=== PATIENT | female | born 1985 | race African-American/Black ===

== ENCOUNTER 2017-05-08 13:03 | Inpatient (IN) | payer BC ==
--- NOTE | ~2017-05-08 | HP ---
History And Physical [facility] [address] [place]. [address] NAME: BILLY WARNER : 87 STATUS : ADM Ellie PAT#: [id number] AGE: 31 ADM/REG DATE : 05/08/17 MR#: [id number] REPORT SERV DATE: 05/08/17 DICTATED BY: DARRICK TOLENTINO DATE: 05/08/17 REPORT STATUS : Draft TRANSCRIBED BY: CARLYLE DATE: 05/08/17 DATE OF ADMISSION: 05/08/2017 CHIEF COMPLAINT: Nausea and vomiting. HISTORY OF PRESENT ILLNESS: The patient is a very pleasant 31-year-old -N[place]ian female. She states on she presented to an Urgent Care of having suprapubic pressure and of the feeling that she may have a urinary tract infection. She was prescribed Cipro for 7 days. I did call the Urgent Care. There is no culture data back yet. She had some 500+ white cells or so according to them, this was however present on a dipstick. She did not have any fever documented. She states she took the Cipro, then on Monday evening, she had a couple of cocktails, woke up Monday, had nausea and vomiting, vomited all day Monday and Monday and then again this morning, she states she could keep nothing down and finally presented to [facility]. She again did not document her any fever. She did not have a new cough. She states the suprapubic pressure actually resolved after being on the Cipro for a couple of days. She has no real other past medical history. She has not seen a doctor in over 9 years, thus she does not know what her baseline kidney function is. PAST MEDICAL HISTORY: Positive for obesity. SOCIAL HISTORY: She does not smoke. She drinks socially. She has a son who is 9. She works as an HR. FAMILY HISTORY: There is no history of kidney disease. There is a history of hypertension in multiple family members. PAST SURGICAL HISTORY: She has had umbilical hernia repair. ALLERGIES: NO KNOWN DRUG ALLERGIES. HOME MEDICATIONS: Reviewed and includes Cipro 500 b.i.d.; ibuprofen [id number]; and p.r.n. Tylenol. REVIEW OF SYSTEMS: Full 10-point review of systems obtained. Pertinent positives are mentioned in the HPI. PHYSICAL EXAMINATION: VITAL SIGNS: Blood pressure 142/85, sats are 98%, temperature 98.2, pulse 65, and respiratory rate 18. GENERAL: A well-developed -[place]ian female, in no apparent distress. HEENT: Normocephalic, atraumatic. Throat is clear. NECK: Supple. Pupils are equal, round, and reactive to light and accommodation. HEART: Regular rate and rhythm without murmurs, rubs, or gallops. LUNGS: Grossly clear. Good symmetric air entry. ABDOMEN: Soft and nondistended. She has some mild epigastric tenderness. EXTREMITIES: Warm and dry. She has 2+ pulses at the feet. She has no significant History And Physical [address] [address] NAME: BILLY WARNER : 87 STATUS : ADM Ellie PAT#: [id number] AGE: 31 ADM/REG DATE : 05/08/17 MR#: [id number] REPORT SERV DATE: 05/08/17 DICTATED BY: DARRICK TOLENTINO DATE: 05/08/17 REPORT STATUS : Draft TRANSCRIBED BY: CARLYLE DATE: 05/08/17 peripheral edema. NEUROLOGIC: She is alert. She is oriented to person, place, and time. MUSCULOSKELETAL: Strength and tone are symmetrical in all four extremities. PSYCHIATRIC: Mood and affect are appropriate. LAB AND X-RAY: Urinalysis shows no significant reds or whites, 100+ protein, negative ketones, negative leukocyte esterase, and nitrites. CBC is essentially normal. CMP shows normal LFTs. Sodium 139, potassium 3.6, chloride 105, CO2 of 29, BUN and creatinine 19 and 3.12. Glucose is 99. Calcium is 8.7. Amylase and lipase are normal. CPK, TSH are pending. HCG is negative. ASSESSMENT/PLAN: 1. Acute kidney injury presumed, do not have any baseline labs to compare; however, my hope is that this is all volume related, related to her nausea, vomiting, and dehydration, however, would expect her BUN to be a bit higher in this case. I am going to place a Fischer and hydrate her aggressively. I am also going to perform a CT of the abdomen and pelvis to look for intrinsic renal disease as well as obstruction. We will obtain her culture results when they are available. I have left a phone number to Urgent Care Center on my progress notes so that the team can call tomorrow. I did try to get the results today and they were not available. We would hold any nephrotoxic agents. We will add some urine electrolytes and urine eosinophils, CPK, and TSH to her workup and go from there. 2. History of urinary tract infection. Her urine looks clean today. I am going to stop antibiotics. She has had over 3 days and if it was simple cystitis, this should be adequate. We will again need to be following up on her urine culture. 3. Lack of primary care. Need to refer to primary care at discharge. 4. Nausea, vomiting, normal amylase, lipase. Again we will follow up CT. We will hydrate aggressively and provide antiemetics and go from there. 5. Deep venous thrombosis prophylaxis with subcutaneous heparin. 6. Disposition pending above. 7. Probable undiagnosed hypertension. Again we will need to follow her blood pressure. She may need the antihypertensives prior to discharge. KIT/CARLYLE Darrick Tolentino M.D. / [id number] CC: Darrick Tolentino M.D.
--- NOTE | ~2017-05-08 | DS ---
Discharge Summary [facility] [address] [place]. [address] NAME: BILLY WARNER : 87 STATUS : DIS IN PAT#: [id number] AGE: 31 ADM/REG DATE : 05/08/17 MR#: [id number] REPORT SERV DATE: 05/12/17 DICTATED BY: DATE: REPORT STATUS : Draft TRANSCRIBED BY: MODL DATE: 05/11/17 ADMISSION DATE: 05/08/2017 DISCHARGE DATE: 05/11/2017 DISCHARGE DIAGNOSES: 1. Acute kidney injury secondary to volume depletion. 2. Hypertension. 3. Nausea and vomiting. 4. Migraines. 5. History of urinary tract infection with use of antibiotics. CONSULTATIONS: Nephrology, Dr. Cross and Beatris Alba, nurse practitioner. PROCEDURES AND IMAGIN. 05/08/2017, CT of the abdomen and pelvis without contrast showed no acute GI or obstruction. 2. 05/09/2017, renal ultrasound showed negative ultrasound, exam of the kidneys. HOSPITAL COURSE: Please refer to history and physical dated 05/08/[address] Carola Tolentino, for complete details regarding the patient's admission. In brief, the patient was admitted by Dr. Tolentino for initial workup of severe nausea and vomiting. The patient has a history of taking Cipro for urinary tract infection x3 days which was then followed by nausea and vomiting for several days. Upon discussion, the patient did say that her urine output was greatly decreased prior to presenting to the emergency room. The patient's nausea and vomiting has subsided. Upon admission, the patient's creatinine was elevated up to 3.97. This has resolved down to a creatinine of 1.54. The patient did show 100+ protein on her urinalysis. Initial BUN was 24 and this has resolved to 11 with fluids. Extensive testing has been done per Nephrology as well as Hospitalist Service. The patient's renal ultrasound was negative, urine eosinophils were negative. EVELYN was negative, ESR was negative. SPEP was negative. The patient will be following up with Nephrology in the next two to three weeks. During the patient's stay, it was discovered that the patient has episodic periods of hypertension. The patient has been instructed to keep a blood pressure log twice daily and take it to her appointment with Nephrology. The patient also has a history of migraines which have been stable at this time. The patient's urinalysis was clear for nitrites or esters or WBCs. PHYSICAL EXAMINATION: VITAL SIGNS: Blood pressure is 163/105, O2 saturation is 97% on room, temperature is 98.0, heart rate is 51, respirations are 18. HEENT: Head is atraumatic, normocephalic. Pupils are equal, round, reactive to light and accommodation. Sclerae are clear. Nonicteric. No xanthelasma. Good dentition. NECK: Neck is supple with no obvious thyromegaly or lymphadenopathy. Neck veins are flat and trachea is midline. CARDIAC: S1 and S2 with no obvious murmurs, rubs, or gallops. LUNGS: Lungs are clear to auscultation with normal respiratory effort. ABDOMEN: Abdomen is soft and nontender with obese pannus. Bowel sounds are active in all Discharge Summary [address] [place]. [address] NAME: BILLY WARNER : 87 STATUS : DIS IN PAT#: [id number] AGE: 31 ADM/REG DATE : 05/08/17 MR#: [id number] REPORT SERV DATE: 05/12/17 DICTATED BY: DATE: REPORT STATUS : Draft TRANSCRIBED BY: MODL DATE: 05/11/17 four quadrants. Normal bowel habitus. No palpable organomegaly. Obese abdomen. EXTREMITIES: No significant edema, clubbing, or cyanosis. Pulses are present and equal bilaterally. MUSCULOSKELETAL: Moves all extremities x4. She is ambulatory without assistance. No difficulties with balance. SKIN: Skin is warm and dry with normal color and turgor. NEUROPSYCH: The patient is alert and oriented x4, pleasant cooperative. Cranial nerves II through XII are grossly intact. DISCHARGE DIET: Renal diet. DISCHARGE MEDICATIONS: Multivitamins daily. ALLERGIES: THE PATIENT HAS NO KNOWN DRUG ALLERGIES. DISCHARGE INSTRUCTIONS: The patient is to follow up with Dr. Cross in two to three weeks. The patient also needs to find a primary care provider for regular visits. The patient will need to be taking her blood pressure twice daily and keeping a blood pressure log to take to Dr. Cross's office. Should the patient develop any more episodes of nausea, vomiting, or diarrhea, the patient is to observe her urine output and to push fluids. If the patient has decrease in urine output, she is to call her PCP or Dr. Cross's office or to present to the ER. Approximately 25 minutes was spent coordinating discharge care of this patient including [id number] encounter and summarization of the discharge. DICTATED BY: ARGELIA Pena/MODL Priyanka Kerns NP / [id number] CC: Luana Shepherd M.D.
--- NOTE | ~2017-05-08 | CN ---
Consultation Report [facility] [address] [place]. [address] NAME: BILLY WARNER : 87 STATUS : ADM Ellie PAT#: [id number] AGE: 31 ADM/REG DATE : 05/08/17 MR#: [id number] REPORT SERV DATE: 05/09/17 DICTATED BY: PATO BUSTAMANTE DATE: 05/09/17 REPORT STATUS : Draft TRANSCRIBED BY: CARLYLE DATE: 05/09/17 NEPHROLOGY CONSULTATION DATE OF CONSULTATION: INDICATION FOR CONSULTATION: Acute kidney injury. HISTORY OF PRESENT ILLNESS: Ms. Warner is a 31-year-old female, who is seen for acute kidney injury following admission for recent UTI, on treatment with ciprofloxacin. She presented to an outpatient facility with complaints of mild dysuria and suprapubic discomfort as well as frequency. Urinalysis was checked, and she was initiated on Cipro. She took only three days of treatment, , Monday, and a dose on Monday. She noted some nausea on Monday, but developed significant problems with nausea and vomiting Monday evening, which persisted through Monday and the time of her evaluation. She also noted some feverishness and chills. She denies any diarrhea, gross hematuria, or foamy urine. She has had no skin rash, epistaxis, or otic infection. She does note episodic bouts of strep throat with last being in December. She reports no arthralgias. Her serum creatinine was 3.12 on admission and has risen to 3.97. She has had no recent lab work since the of her child nine years ago. PAST MEDICAL HISTORY: Migraines, some childhood seasonal allergies. PAST SURGICAL HISTORY: Negative. MEDICATIONS: Ciprofloxacin, p.r.n. ibuprofen, p.r.n. Tylenol. ALLERGIES: NONE KNOWN. SOCIAL HISTORY: The patient works with human resources. Has some occasional social use of alcohol. No illicit drugs or tobacco products. She is single and has a 9-year-old child. She has college degree and a master's degree from [employer]. FAMILY HISTORY: Grandfather from colon cancer, had some kidney problems, but not on dialysis. Grandmother with heart problems. Multiple family members with hypertension and diabetes. No end-stage renal disease. REVIEW OF SYSTEMS: HEENT: No change in visual acuity. No epistaxis. No otic infection. No pharyngitis. Does have history of strep throat. PULMONARY: Denies cough, hemoptysis, or shortness of breath. CARDIAC: Denies chest pain, dizziness, palpitations, or lower extremity edema. GI: Recent nausea and vomiting. No diarrhea. No melena. : Recent suprapubic discomfort with dysuria. No gross hematuria. MUSCULOSKELETAL: No arthralgias. Consultation Report [facility] [id number] [place]. [address] NAME: BILLY WARNER : 87 STATUS : ADM Ellie PAT#: [id number] AGE: 31 ADM/REG DATE : 05/08/17 MR#: [id number] REPORT SERV DATE: 05/09/17 DICTATED BY: PATO BUSTAMANTE DATE: 05/09/17 REPORT STATUS : Draft TRANSCRIBED BY: CARLYLE DATE: 05/09/17 INTEGUMENT: No skin rash. No skin lesions. NEUROLOGIC: No lateralizing weakness or seizure disorder. Remainder of 12-point review of systems negative. PHYSICAL EXAMINATION: VITAL SIGNS: Blood pressure 142/80, respiratory rate 16, temperature 98.4, pulse 73. GENERAL: Pleasant female, alert and cooperative. HEENT: Eyes, no scleral icterus. Pupils equal and reactive to light. Extraocular movement intact. Nares patent, no discharge. Throat, no injection. Mucous membranes moist. NECK: No thyromegaly, masses, or bruits. CHEST/LUNGS: Clear to auscultation and percussion. CARDIAC: Regular rate and rhythm. No murmur, gallop, or rub. ABDOMEN: Obese. Normoactive bowel sounds. Nontender. No hepatosplenomegaly. No masses. BREASTS: Not performed. PELVIC: Not performed. RECTAL: Not performed. EXTREMITIES: No calf tenderness. No lower extremity edema. DERMIS: No rash. No skin lesions. MUSCULOSKELETAL: No deformity. No joint tenderness. NEUROLOGIC: Cranial nerves intact. No lateralizing weakness. IMPRESSION: 1. Acute kidney injury versus acute on chronic kidney disease. We consider underlying GN, including postinfectious GN as well as allergic interstitial nephritis. 2. Hypertension. 3. Nausea and vomiting, resolved. PLAN: 1. Ultrasound to determine kidney size. 2. Lab. HUBER/MODL Pato Bustamante M.D. / [id number] CC: Luana Shepherd M.D.
[2017-05-08 11:45] LABS: WBC (NOT ORDERED) (RFLEX) 0 (0-5)
[2017-05-08 11:51] LABS: ASCORBIC ACID (UR NOT ORDER) NEG (NEG); BILIRUBIN, URINE NEGATIVE (NEG); ER URINALYSIS TAT 0 Hrs 10 Mins; KETONE, URINE NEGATIVE (NEG); LEUKOCYTE ESTERASE(NOT OR NEG (NEG); NITRITE (URINE) NEG (NEG)
[2017-05-08 11:59] LABS: BASOPHILS 0.1 %; BASOPHILS ABSOLUTE 0.01 10/3/uL (0.0-0.16); EOSINOPHILS 0.1 %; EOSINOPHILS ABSOLUTE 0.01 10/3/uL (0.0-0.53); ER CBC TAT 0 Hrs 13 Mins; HEMOGLOBIN 13.3 g/dL (12.0-16.0); IMMATURE GRANULOCYTES 0.2 %; IMMATURE GRANULOCYTES ABSOLUTE 0.02 10/3/uL (0.0-0.11); LYMPHOCYTES 31.8 %; LYMPHOCYTES ABSOLUTE 2.65 10/3/uL (0.67-4.30); MEAN CORPUS HGB CONC 32.4 g/dL (32.0-36.0); MEAN CORPUSCULAR VOLUME 86.3 fL (80-100); MEAN PLATELET VOLUME 9.8 fL (9.2-13.0); MONOCYTES 8.5 %; MONOCYTES ABSOLUTE 0.71 10/3/uL (0.21-1.20); NEUTROPHILS 59.3 %; NEUTROPHILS ABSOLUTE 4.93 10/3/uL (2.02-8.40); PLATELET COUNT 254 10/3/uL (150-400); RBC DISTRIBUTION WIDTH 14.3 % (12.0-16.0); RED CELL COUNT 4.75 10/6/uL (4.0-5.6); WHITE BLOOD CELLS 8.3 10/3/uL (4.5-10.5)
[2017-05-08 12:03] LABS: MANUAL DIFF NO %
[2017-05-08 12:15] LABS: A/G RATIO 0.9 (0.7-1.9); ALBUMIN 3.8 G/DL (3.5-5.0); ALKALINE PHOSPHATASE 72 U/L (45-117); BUN (BLOOD UREA NITROGEN) 19 MG/DL (6-23); CALCIUM, SERUM 8.7 MG/DL (8.5-10.4); CHLORIDE, SERUM 105 MMOL/L (96-112); CO2 (CARBON DIOXIDE) 29 MMOL/L (24-34); CREATININE 3.12 MG/DL (0.55-1.02); GFR AFRICAN AMERICAN 22 ML/MIN (>=60); GFR NON AFRICAN AMERICAN 19 ML/MIN (>=60); GLOBULIN 4.4 G/DL (2.5-4.1); GLUCOSE, SERUM 99 MG/DL (60-99); POTASSIUM, SERUM 3.6 MMOL/L (3.5-5.3); SGOT(AST) 35 U/L (5-40); SGPT(ALT) 31 U/L (5-65); SODIUM, SERUM 139 MMOL/L (135-148); TOTAL BILIRUBIN 0.5 MG/DL (0-1.2); TOTAL PROTEIN 8.2 G/DL (6.0-8.5)
[2017-05-08] MEDS ORDERED: MULTIVIT/MIN PO (13:05)
[2017-05-08] MEDS ORDERED: CIP5 PO (13:05)
[2017-05-08] MEDS ORDERED: ADVIL PO (13:06)
[2017-05-08 16:00] LABS: CPK 345 U/L (0-200); ULTRASENSITIVE TSH 0.923 MCIU/ML (0.358-3.740)
[2017-05-08 16:02] LABS: DIRECT BILIRUBIN < 0.1 MG/DL (0.0-0.4); INDIRECT BILIRUBIN(NOT ORDER) 0.4 MG/DL (0.1-0.9)
[2017-05-09 04:18] LABS: BASOPHILS 0.3 %; BASOPHILS ABSOLUTE 0.02 10/3/uL (0.0-0.16); EOSINOPHILS 1.2 %; EOSINOPHILS ABSOLUTE 0.09 10/3/uL (0.0-0.53); HEMATOCRIT 36.2 % (36.0-48.0); HEMOGLOBIN 12.1 g/dL (12.0-16.0); IMMATURE GRANULOCYTES 0.3 %; IMMATURE GRANULOCYTES ABSOLUTE 0.02 10/3/uL (0.0-0.11); LYMPHOCYTES 39.9 %; LYMPHOCYTES ABSOLUTE 2.93 10/3/uL (0.67-4.30); MANUAL DIFF NO %; MEAN CORPUS HGB CONC 33.4 g/dL (32.0-36.0); MEAN CORPUSCULAR HEMOGLOB 29.2 pg (26.0-34.0); MEAN CORPUSCULAR VOLUME 87.2 fL (80-100); MEAN PLATELET VOLUME 9.8 fL (9.2-13.0); MONOCYTES 10.1 %; MONOCYTES ABSOLUTE 0.74 10/3/uL (0.21-1.20); NEUTROPHILS 48.2 %; NEUTROPHILS ABSOLUTE 3.54 10/3/uL (2.02-8.40); PLATELET COUNT 217 10/3/uL (150-400); RBC DISTRIBUTION WIDTH 14.4 % (12.0-16.0); RED CELL COUNT 4.15 10/6/uL (4.0-5.6); WHITE BLOOD CELLS 7.3 10/3/uL (4.5-10.5)
[2017-05-09 04:30] LABS: CHLORIDE, SERUM 108 MMOL/L (96-112); GLUCOSE, SERUM 95 MG/DL (60-99); POTASSIUM, SERUM 3.7 MMOL/L (3.5-5.3); SODIUM, SERUM 138 MMOL/L (135-148)
[2017-05-09 04:33] LABS: BUN (BLOOD UREA NITROGEN) 24 MG/DL (6-23); CALCIUM, SERUM 7.7 MG/DL (8.5-10.4); CO2 (CARBON DIOXIDE) 23 MMOL/L (24-34); CREATININE 3.97 MG/DL (0.55-1.02); GFR AFRICAN AMERICAN 17 ML/MIN (>=60); GFR NON AFRICAN AMERICAN 14 ML/MIN (>=60)
[2017-05-09 10:38] LABS: ASCORBIC ACID (UR NOT ORDER) NEG (NEG); BILIRUBIN, URINE NEGATIVE (NEG); KETONE, URINE NEGATIVE (NEG); LEUKOCYTE ESTERASE(NOT OR SMALL (NEG); WBC (NOT ORDERED) (RFLEX) 13 (0-5)
[2017-05-09 11:06] LABS: CPK 199 U/L (0-200)
[2017-05-09 13:07] LABS: T PROTEIN (ELECT)(NOT OR 6.5 G/DL (6.0-8.5)
[2017-05-09 13:55] LABS: CREATININE (RANDOM URINE) 57.9 MG/DL; CREATININE, URINE 57.9 MG/DL; MICROALBUMIN, RANDOM URINE 3.1 MG/DL
[2017-05-09 14:14] LABS: COMPLEMENT C4 24.5 MG/DL (16-47)
[2017-05-10 03:51] LABS: BASOPHILS 0.2 %; BASOPHILS ABSOLUTE 0.01 10/3/uL (0.0-0.16); EOSINOPHILS 1.3 %; EOSINOPHILS ABSOLUTE 0.08 10/3/uL (0.0-0.53); HEMATOCRIT 36.1 % (36.0-48.0); IMMATURE GRANULOCYTES 0.5 %; IMMATURE GRANULOCYTES ABSOLUTE 0.03 10/3/uL (0.0-0.11); LYMPHOCYTES 40.9 %; LYMPHOCYTES ABSOLUTE 2.59 10/3/uL (0.67-4.30); MANUAL DIFF NO %; MEAN CORPUS HGB CONC 33.2 g/dL (32.0-36.0); MEAN CORPUSCULAR HEMOGLOB 28.9 pg (26.0-34.0); MEAN PLATELET VOLUME 10.3 fL (9.2-13.0); MONOCYTES 7.1 %; MONOCYTES ABSOLUTE 0.45 10/3/uL (0.21-1.20); NEUTROPHILS ABSOLUTE 3.17 10/3/uL (2.02-8.40); PLATELET COUNT 214 10/3/uL (150-400); RBC DISTRIBUTION WIDTH 14.3 % (12.0-16.0); RED CELL COUNT 4.15 10/6/uL (4.0-5.6); WHITE BLOOD CELLS 6.3 10/3/uL (4.5-10.5)
[2017-05-10 04:08] LABS: CALCIUM, SERUM 8.3 MG/DL (8.5-10.4); CHLORIDE, SERUM 112 MMOL/L (96-112); CO2 (CARBON DIOXIDE) 23 MMOL/L (24-34); GLUCOSE, SERUM 98 MG/DL (60-99); PHOSPHORUS, SERUM 4.1 MG/DL (2.5-4.5); POTASSIUM, SERUM 4.3 MMOL/L (3.5-5.3); SODIUM, SERUM 142 MMOL/L (135-148)
[2017-05-10 04:10] LABS: ALBUMIN 2.9 G/DL (3.5-5.0); BUN (BLOOD UREA NITROGEN) 20 MG/DL (6-23); CREATININE 2.86 MG/DL (0.55-1.02); GFR AFRICAN AMERICAN 25 ML/MIN (>=60); GFR NON AFRICAN AMERICAN 21 ML/MIN (>=60)
[2017-05-10 10:43] LABS: A/G 1.16 RATIO (0.9-2.10); ALB RELATIVE % 53.7 % (60.0-89.0); ALBUMIN (ELECTRO) 3.49 GM/DL (3.2-5.5); ALPHA 1 (ELECTRO) 0.21 GM/DL (0.1-0.4); ALPHA 1 RELAT % (NOT ORD) 3.2 % (1.0-4.0); ALPHA 2 (ELECTRO) 0.68 GM/DL (0.5-1.10); ALPHA 2 RELAT % 10.5 % (4.5-26.0); BETA GLOBULIN (SPE) 0.87 GM/DL (0.60-1.30); BETA RELATIVE % 13.4 % (9.0-22.0); GAMMA GLOBULIN (SPE) 1.25 G/DL (0.70-1.60); GAMMA RELAT % 19.2 % (6.0-22.0)
[2017-05-10 11:58] LABS: ANA TITER <1:40 TITER
[2017-05-11 09:39] LABS: BASOPHILS 0.5 %; BASOPHILS ABSOLUTE 0.03 10/3/uL (0.0-0.16); EOSINOPHILS 1.1 %; EOSINOPHILS ABSOLUTE 0.07 10/3/uL (0.0-0.53); HEMATOCRIT 38.4 % (36.0-48.0); HEMOGLOBIN 12.4 g/dL (12.0-16.0); LYMPHOCYTES 50.7 %; LYMPHOCYTES ABSOLUTE 3.16 10/3/uL (0.67-4.30); MEAN CORPUS HGB CONC 32.3 g/dL (32.0-36.0); MEAN CORPUSCULAR HEMOGLOB 28.1 pg (26.0-34.0); MEAN CORPUSCULAR VOLUME 86.9 fL (80-100); MONOCYTES 7.5 %; MONOCYTES ABSOLUTE 0.47 10/3/uL (0.21-1.20); NEUTROPHILS 40.2 %; PLATELET COUNT 231 10/3/uL (150-400); RBC DISTRIBUTION WIDTH 14.2 % (12.0-16.0); RED CELL COUNT 4.42 10/6/uL (4.0-5.6); WHITE BLOOD CELLS 6.2 10/3/uL (4.5-10.5)
[2017-05-11 09:42] LABS: MANUAL DIFF NO %
[2017-05-11 09:52] LABS: BUN (BLOOD UREA NITROGEN) 11 MG/DL (6-23); CALCIUM, SERUM 8.6 MG/DL (8.5-10.4); CHLORIDE, SERUM 110 MMOL/L (96-112); CO2 (CARBON DIOXIDE) 27 MMOL/L (24-34); CREATININE 1.54 MG/DL (0.55-1.02); GFR AFRICAN AMERICAN 52 ML/MIN (>=60); GFR NON AFRICAN AMERICAN 45 ML/MIN (>=60); GLUCOSE, SERUM 92 MG/DL (60-99); SODIUM, SERUM 146 MMOL/L (135-148)
== END 2017-05-11 15:02 | disposition home or self-care (01) | DRG 683 ==
LOC: ER 13:03 → CDU1 13:40 → 4SO 05-10 13:28
PROVIDERS: Internal Medicine; Internal Medicine Nephrology; Physician Assistant
DX: N17.9 Acute kidney failure, unspecified (principal); Z68.41 Body mass index [BMI] 40.0-44.9, adult; I10 Essential (primary) hypertension; E66.9 Obesity, unspecified; N05.8 Unspecified nephritic syndrome with other morphologic changes; G43.909 Migraine, unspecified, not intractable, without status migrainosus; E86.9 Volume depletion, unspecified; Z87.440 Personal history of urinary (tract) infections
CPT/HCPCS: 74176; 76775; 80048; 80053; 80069; 81001; 82043; 82150; 82248; 82550; 82570; 83516; 83690; 83735; 83935; 84133; 84155; 84165; 84300; 84443; 84703; 85025; 85652; 86039; 86160; 86215; 87086; 89190; 96360; 99284; A9270-GY